=== PATIENT | male | born 1990 | race African-American/Black ===

== ENCOUNTER 2020-08-03 09:08 | Emergency (ER) | payer OTHER ==
[2020-08-03] MEDS ORDERED: KETOROLAC 30 MG/ML INJ ONE (11:05)
--- NOTE | 2020-08-03 11:16 | EDPHYS ---
Physician Documentation [facility] Name: Henrry Mohan Age: 29 yrs Sex: Male : 1990 Arrival Date: 08/03/2020 Time: 09:15 Bed 20 Private MD: ED Physician Jeremy Domingo HPI: 08/03 10:38 This 29 yrs old Black Male presents to ER via Ambulatory with complaints of Knee Pain. pm1 10:38 The patient presents with pain. The complaints affect the left knee. Context: The pm1 problem was sustained at work, resulted from a repetitive motion, jumping, the patient can fully bear weight, the patient is able to ambulate, Problem is a result from a previous injury: No. Onset: The symptoms/episode began/occurred 3 month(s) ago. Modifying factors: the symptoms are aggravated by weight bearing, bending knee. Associated signs and symptoms: Pertinent negatives calf tenderness, numbness, swelling, tingling. Treatment prior to arrival includes: over the counter medications, NSAIDS. Severity of symptoms: in the emergency department the symptoms are actually worse. 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 Historical: - Allergies: 09:21 No Known Allergies; ss - Home Meds: 09:21 None [Active]; ss - PMHx: 09:21 None; ss - PSHx: 09:21 None; ss - Immunization history:: Adult Immunizations unknown. - Social history:: Smoking status: Patient reports the use of cigarette tobacco products, smokes one-half pack cigarettes per day. ROS: 10:38 Constitutional: Negative for fever, chills, and weight loss. pm1 10:38 Cardiovascular: Negative for chest pain, palpitations, and edema, Respiratory: Negative for shortness of breath, cough, wheezing, and pleuritic chest pain. 10:38 Skin: Negative for injury, rash, and discoloration, Neuro: Negative for headache, weakness, numbness, tingling, and seizure. 10:38 MS/extremity: Positive for pain, of the left knee. Exam: 10:38 Constitutional: This is a well developed, well nourished patient who is awake, alert, pm1 and in no acute distress. Head/Face: Normocephalic, atraumatic. 10:38 Skin: Warm, dry with normal turgor. Normal color with no rashes, no lesions, and no evidence of cellulitis. 10:38 Cardiovascular: Exam negative for acute changes, Rate: normal, Rhythm: regular, Pulses: no pulse deficits are appreciated. 10:38 Respiratory: Exam negative for acute changes, respiratory distress, shortness of breath. 10:38 Musculoskeletal/extremity: Extremities: grossly normal except: noted in the left knee: negative drawer, valgus, varus test. Positive apley test. Vital Signs: 09:19 BP 135 / 82; Pulse 75; Resp 16; Temp 98.5(TE); Pulse Ox 100% on R/A; Height 5 ft. 8 in. ss (172.72 cm); Pain 8/10; MDM: 10:30 Patient medically screened. pm1 10:37 Data reviewed: vital signs. Data interpreted: Pulse oximetry: on room air is 100 %. pm1 Interpretation: normal. 11:13 Counseling: I had a detailed discussion with the patient and/or guardian regarding: the pm1 historical points, exam findings, and any diagnostic results supporting the discharge/admit diagnosis, radiology results, the need for outpatient follow up, for definitive care, a orthopedic surgeon, to return to the emergency department if symptoms worsen or persist or if there are any questions or concerns that arise at home. 12 10:37 Order name: Knee Left 3 View XRAY; Complete Time: 13:23 pm1 08/03 10:37 Order name: Knee Immobilizer; Complete Time: 11:24 pm1 08/03 10:37 Order name: Crutches; Complete Time: 11:24 pm1 Administered Medications: 10:56 Drug: TORadol 60 mg Route: IM; Site: left deltoid; ph 11:39 Follow up: Response: No adverse reaction ph Disposition: 15:42 Co-signature as Attending Physician, Jeremy Domingo MD. rn Disposition: 08/03/20 11:15 Discharged to Home. Impression: Unspecified internal derangement of left knee, Pain in left knee. - Condition is Stable. - Discharge Instructions: Crutch Use, Knee Immobilizer, Knee Pain. - Prescriptions for Tramadol 50 mg Oral Tablet - take 1 tablet by ORAL route every 8 hours as needed; 12 tablet. - Work release form, Medication Reconciliation Form, Thank You Letter, Antibiotic Education, Prescription Opioid Use form. - Follow up: Emergency Department; When: As needed; Reason: Worsening of condition. Follow up: Private Physician; When: 2 - 3 days; Reason: Recheck today's complaints, Continuance of care, Re-evaluation by your physician. - Problem is new. - Symptoms have improved. Signatures: Dispatcher [employer] EDMS Jeremy Domingo MD MD rn Smirch, Shelby, RN RN Johana Tidwell RN RN ph David Wan, ADRIANNA SERVICE TRAINER pm1 Corrections: (The following items were deleted from the chart) 11:40 11:15 08/03/2020 11:15 Discharged to Home. Impression: Unspecified internal derangement ph of left kneePain in left knee. Condition is Stable. Forms are Medication Reconciliation Form, Thank You Letter, Antibiotic Education, Prescription Opioid Use. Follow up: Emergency Department; When: As needed; Reason: Worsening of condition. Follow up: Private Physician; When: 2 - 3 days; Reason: Recheck today's complaints, Continuance of care, Re-evaluation by your physician. Problem is new. Symptoms have improved. pm1
--- NOTE | 2020-08-03 11:16 | ER ---
Nurse's Notes [facility] Name: Henrry Mohan Age: 29 yrs Sex: Male : 1990 Arrival Date: 08/03/2020 Time: 09:15 Bed 20 Private MD: Diagnosis: Pain in left knee;Unspecified internal derangement of left knee Presentation: 08/03 09:19 Chief complaint: Patient states: L knee pain that began 3 months ago. 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 Coronavirus screen: Client denies travel out of the [place] in the last 14 days. Ebola Screen: Patient denies exposure to infectious person. Patient denies travel to an Ebola-affected area in the 21 days before illness onset. Initial Sepsis Screen: Does the patient meet any 2 criteria? No. Patient's initial sepsis screen is negative. Does the patient have a suspected source of infection? No. Patient's initial sepsis screen is negative. Risk Assessment: Do you want to hurt yourself or someone else? Patient reports no desire to harm self or others. Onset of symptoms was April 2020. 09:19 Method Of Arrival: Ambulatory ss 09:19 Acuity: JOSSELINE 4 ss Historical: - Allergies: 09:21 No Known Allergies; ss - Home Meds: 09:21 None [Active]; ss - PMHx: 09:21 None; ss - PSHx: 09:21 None; ss - Immunization history:: Adult Immunizations unknown. - Social history:: Smoking status: Patient reports the use of cigarette tobacco products, smokes one-half pack cigarettes per day. Screenin:57 Abuse screen: Denies threats or abuse. Denies injuries from another. Nutritional ph screening: No deficits noted. Tuberculosis screening: No symptoms or risk factors identified. Fall Risk None identified. Assessment: 10:56 General: Appears in no apparent distress. comfortable, well groomed, Behavior is calm, ph cooperative, appropriate for age. Pain: Complains of pain in left knee. Neuro: Level of Consciousness is awake, alert, obeys commands, Oriented to person, place, time, situation. Derm: Skin is intact, is healthy with good turgor, Skin is pink, warm \T\ dry. Musculoskeletal: Circulation, motion, and sensation intact. Range of motion: intact in all extremities. Vital Signs: 09:19 BP 135 / 82; Pulse 75; Resp 16; Temp 98.5(TE); Pulse Ox 100% on R/A; Height 5 ft. 8 in. ss (172.72 cm); Pain 8/10; ED Course: 09:15 Patient arrived in ED. ds1 09:21 Triage completed. ss 09:21 Arm band placed on left wrist. ss 10:05 Johana Tidwell RN is Primary Nurse. ph 10:22 David Wan NP is PHCP. pm1 10:22 Jeremy Domingo MD is Attending Physician. pm1 10:57 Patient has correct armband on for positive identification. Bed in low position. Call ph light in reach. 10:57 No provider procedures requiring assistance completed. Patient did not have IV access ph during this emergency room visit. 11:04 Knee Left 3 View XRAY In Process Unspecified. EDMS 11:25 Crutch training done. Knee immobilizer applied on left knee. ds4 Administered Medications: 10:56 Drug: TORadol 60 mg Route: IM; Site: left deltoid; ph 11:39 Follow up: Response: No adverse reaction ph Outcome: 11:15 Discharge ordered by MD. pm1 11:39 Discharged to home ambulatory, with crutches. ph 11:39 Condition: good 11:39 Discharge instructions given to patient, Instructed on discharge instructions, follow up and referral plans. medication usage, Demonstrated understanding of instructions, follow-up care, medications, Prescriptions given X 1. 11:40 Patient left the ED. ph Signatures: Dispatcher [employer] EDKS Tiana Boggs ds1 Lianna Meyer RN RN Tono Garcia ds4 Johana Tidwell RN RN David Wan NP GRAVITY PROSPECTING OPERATOR HELPER pm1
--- NOTE | 2020-08-03 11:38 | RAD REPORT ---
EXAM DESCRIPTION: RAD - Knee Left 3 View - 08/03/2020 11:03 am CLINICAL HISTORY: Left knee pain FINDINGS: No fracture or dislocation is seen. Small joint effusion suspected
[2020-08-08 01:53] VITALS: BP 135/82; TEMP 98.5; O2SAT 100
== END 2020-08-03 11:40 | disposition home or self-care (01) ==
LOC: ER 09:08
DX: M23.92 Unspecified internal derangement of left knee (principal); F17.210 Nicotine dependence, cigarettes, uncomplicated
CPT/HCPCS: 96372; 99284

== ENCOUNTER 2022-09-26 23:10 | Emergency (ER) | payer OTHER ==
[2022-09-26] MEDS ORDERED: ZIPRASIDONE MESYLA 20 MG/VIAL IM ONE (23:35)
[2022-09-26] MEDS ORDERED: WATER FOR INJ,STERILE 10 ML ONE (23:36)
[2022-09-27 00:09] LABS: Protime INR 0.84
[2022-09-27 00:10] LABS: Absolute Lymphocytes (CBC) 3.2 K/uL (0.7-4.9); Hematocrit 41.4 % (39.6-49.0); Lymphocytes % 37.4 % (15.3-44.8); MPV 9.9 fL (7.6-11.3); RBC Red Blood Cell Count 4.81 M/uL (4.33-5.43)
[2022-09-27 00:22] LABS: SARS-CoV-2 Antigen Rapid Res Negative (Negative)
[2022-09-27 00:31] LABS: BUN Blood Urea Nitrogen 13 mg/dL (7-18); Bicarbonate 25 mmol/L (21-32); Glomerular Filtration Rate 103 ml/min (=/>90); Glucose Level 77 mg/dL (74-106); Sodium Level 142 mmol/L (136-145)
[2022-09-27 00:38] LABS: ALT/SGPT 49 U/L (16-61); Albumin 3.6 g/dL (3.4-5.0); Alkaline Phosphatase 112 U/L (45-117); Bilirubin Total 0.3 mg/dL (0.2-1.0)
[2022-09-27 00:39] LABS: AST/SGOT 38 U/L (15-37); Protein, Total 7.3 g/dL (6.4-8.2)
[2022-09-27 00:41] LABS: Bilirubin Direct < 0.1 mg/dL (0-0.2)
[2022-09-27] MEDS ORDERED: NA CHLORIDE 0.9% 1,000 ML ONE (00:52)
[2022-09-27 02:08] LABS: Urine Blood Negative (Negative); Urine Glucose Negative (Negative); Urine Protein Negative (Negative); Urine pH 6.5 (5.0-7.0)
--- NOTE | 2022-09-27 02:15 | ER ---
Nurse's Notes [facility] Name: Henrry Mohan Age: 31 yrs Sex: Male : 1990 Arrival Date: 09/26/2022 Time: 23:15 Bed 16 Private MD: Diagnosis: Auditory hallucinations;Schizophrenia, unspecified;Polysubstance abuse Presentation: 09/26 23:19 Chief complaint: Patient states: Hallucinations, Hearing voices since about a month and ke1 getting worse today. Coronavirus screen: Vaccine status: Patient reports being unvaccinated. Ebola Screen: No symptoms or risks identified at this time. Initial Sepsis Screen: Does the patient meet any 2 criteria? RR > 20 per min. Does the patient have a suspected source of infection? No. Patient's initial sepsis screen is negative. Risk Assessment: Do you want to hurt yourself or someone else? Patient reports no desire to harm self or others. Onset of symptoms was August 26, 2022 at 07:00. 23:19 Method Of Arrival: EMS ke1 23:19 Acuity: JOSSELINE 3 ke1 Triage Assessment: 23:20 General: Appears uncomfortable, Behavior is agitated, restless. Pain: Denies pain. ke1 Neuro: Etienne Agitation-Sedation Scale (RASS): +1 Restless Level of Consciousness is awake, alert, Oriented to person, place, time, situation. Respiratory: Respiratory effort is even, labored. Historical: - Allergies: 23:44 No Known Allergies; ke1 - PMHx: 23:44 Schizophrenia; Bipolar disorder; ke1 - Immunization history:: Client reports having NOT received the Covid vaccine. - Social history:: Smoking status: Patient reports the use of cigarette tobacco products, smokes one pack cigarettes per day. Screenin:45 [facility] ED Fall Risk Assessment (Adult) History of falling in the last 3 months, ke1 including since admission No falls in past 3 months (0 pts) Confusion or Disorientation No (0 pts) Intoxicated or Sedated No (0 pts) Impaired Gait No (0 pts) Mobility Assist Device Used No (0 pt) Altered Elimination No (0 pt) Score/Fall Risk Level 0 - 2 = Low Risk. Abuse screen: Denies threats or abuse. Nutritional screening: No deficits noted. Tuberculosis screening: No symptoms or risk factors identified. Assessment: 09/27 00:02 Neuro: Etienne Agitation-Sedation Scale (RASS): -1 Drowsy. ke1 00:02 Reassessment: Patient in bed sleeping. ke1 00:12 Reassessment: Patient unable to provide urine at this time. ke1 01:30 Reassessment: Re attempt to get urine, patient is refusing to wake up, not able to get ke1 urine at this time. 02:00 Reassessment: urine collected Patient denies pain at this time. ke1 02:13 Neuro: Etienne Agitation-Sedation Scale (RASS): -1 Drowsy. ke1 06:52 Neuro: Etienne Agitation-Sedation Scale (RASS): 0 - Alert and Calm. ke1 Psych: 09/26 23:40 [place] Suicide Severity Screening: In the past month, have you wished you were ke1 or wished you could go to sleep and not wake up? Patient responds "No." "In the past month, have you actually had any thoughts of killing yourself?" Patient responds "no." "In your lifetime, have you ever done anything, started to do anything, or prepared to do anything to end your life?" Patient responds "no.". Subjective: Hallucinations are auditory, visual. Objective: Patient is cooperative, restless, Speech is normal, Affect is appropriate. Interventions: Patient placed in hospital gown. Safety Checks: Pt has been placed in a hallway bed/chair. Door is open. No visitors are present at this time. drank some tequila 30 mn prior. Commitment: Patient will be a voluntary commitment. Vital Signs: 23:19 BP 161 / 113; Pulse 103; Resp 21; Temp 97.5; Pulse Ox 100% on R/A; Weight 95.25 kg; ke1 Height 5 ft. 8 in. (172.72 cm); Pain 0/10; 09/27 00:09 BP 131 / 89; Pulse 93; Resp 20; Pulse Ox 98% ; ke1 02:13 BP 107 / 64; Pulse 80; Resp 17; Pulse Ox 98% on R/A; Pain 0/10; ke1 03:14 BP 123 / 84; Pulse 76; Resp 16; Temp 97.6; Pulse Ox 97% on R/A; Pain 0/10; ke1 06:51 BP 129 / 96; Pulse 74; Resp 17; Temp 97.8; Pulse Ox 99% on R/A; Pain 0/10; ke1 09/26 23:19 Body Mass Index 31.93 (95.25 kg, 172.72 cm) ke1 ED Course: 09/26 23:15 Patient arrived in ED. wm 23:15 [facility]C [facility] kb 23:15 Jose Florentino DO is Attending Physician. kb 23:19 Donald Souza RN is Primary Nurse. ke1 23:40 Inserted saline lock: 20 gauge in left antecubital area, using aseptic technique. Blood ed2 collected. 23:44 Triage completed. ke1 23:48 Arm band placed on left wrist. ke1 23:50 Bed in low position. Call light in reach. Side rails up X 1. Side rails up X2. ke1 09/27 02:07 Urine Drug Screen Sent. ke1 03:55 Faxed all Psych Facilities listed on transfer sheet. 04:59 [facility] called to do Nurse to Nurse. wm 05:05 [facility] called to do Nurse to Nurse. wm 05:19 [facility] accepted Pt for transfer. wm 06:51 No provider procedures requiring assistance completed. IV discontinued. ke1 Administered Medications: 09/26 23:57 Drug: Geodon (ziprasidone) 10 mg Route: IM; Site: left deltoid; ke1 09/27 00:30 Follow up: Response: Marked relief of symptoms ke1 00:53 Drug: NS 0.9% 1000 ml Route: IV; Rate: 1000 ml; Site: left antecubital; ke1 Medication: 06:59 VIS not applicable for this client. ke1 Outcome: 02:14 ER care complete, transfer ordered by . ms3 06:59 Transferred by ground EMS ke1 06:59 Condition: good 06:59 Instructed on the need for transfer. 06:59 Patient left the ED. ke1 Signatures: Neela Kern FNP-C SCOUT EXECUTIVE-Ckb Jose Florentino DO DO ms3 Estefanía Penn Donald Souza RN RN ke1 Susie Horne ed2 Corrections: (The following items were deleted from the chart) 09/26 23:46 23:46 General: Appears ke1 ke1 09/27 02:17 02:13 Neuro: Etienne Agitation-Sedation Scale (RASS): 0 - Alert and Calm ke1 ke1
--- NOTE | 2022-09-27 02:15 | EDPHYS ---
Physician Documentation [facility] Name: Henrry Mohan Age: 31 yrs Sex: Male : 1990 Arrival Date: 09/26/2022 Time: 23:15 Bed 16 Private MD: ED Physician Jose Florentino HPI: 09/26 23:17 This 31 yrs old Black Male presents to ER via Unassigned with complaints of Psych kb Problem. 23:17 The patient presents to the emergency department with Auditory hallucinations. Onset: kb The symptoms/episode began/occurred 1 month(s) ago, and became worse. Past psychiatric history: Prior diagnosis: bipolar disorder, schizophrenia. Associated signs and symptoms: Pertinent positives; hallucinations. Severity of symptoms: At their worst the symptoms were moderate in the emergency department the symptoms are unchanged. The patient has experienced similar episodes in the past. The patient has not recently seen a physician. Patient reports auditory hallucinations for 1 month they have been getting progressively worse. States he has a history of schizophrenia and bipolar but is not on any medications. Reports he stopped taking his medications about 2 years ago. Denies homicidal or suicidal ideations at this time.. Historical: - Allergies: 23:44 No Known Allergies; ke1 - PMHx: 23:44 Schizophrenia; Bipolar disorder; ke1 - Immunization history:: Client reports having NOT received the Covid vaccine. - Social history:: Smoking status: Patient reports the use of cigarette tobacco products, smokes one pack cigarettes per day. ROS: 23:19 Constitutional: Negative for fever, chills, and weight loss. kb 23:19 Psych: Positive for auditory hallucinations. 23:19 All other systems are negative. Exam: 23:19 Constitutional: This is a well developed, well nourished patient who is awake, alert, kb and in no acute distress. Head/Face: Normocephalic, atraumatic. ENT: Moist Mucous membranes Cardiovascular: Regular rate and rhythm with a normal S1 and S2. No gallops, murmurs, or rubs. No pulse deficits. Respiratory: Respirations even and unlabored. No increased work of breathing. Talking in full sentences Skin: Warm, dry with normal turgor. Normal color. MS/ Extremity: Pulses equal, no cyanosis. Neurovascular intact. Full, normal range of motion. Neuro: Awake and alert, GCS 15, oriented to person, place, time, and situation. Moves all extremities. Normal gait. 23:19 Psych: Behavior/mood is cooperative, anxious, Affect is calm, Oriented to person, place, time, Patient has no thoughts/intents to harm self or others. Judgement / Insight is normal. Memory is normal. Delusions/hallucinations are present and described as Auditory hallucinations. 23:33 ECG was reviewed by the Attending Physician. Vital Signs: 23:19 BP 161 / 113; Pulse 103; Resp 21; Temp 97.5; Pulse Ox 100% on R/A; Weight 95.25 kg; ke1 Height 5 ft. 8 in. (172.72 cm); Pain 0/10; 09/27 00:09 BP 131 / 89; Pulse 93; Resp 20; Pulse Ox 98% ; ke1 02:13 BP 107 / 64; Pulse 80; Resp 17; Pulse Ox 98% on R/A; Pain 0/10; ke1 03:14 BP 123 / 84; Pulse 76; Resp 16; Temp 97.6; Pulse Ox 97% on R/A; Pain 0/10; ke1 06:51 BP 129 / 96; Pulse 74; Resp 17; Temp 97.8; Pulse Ox 99% on R/A; Pain 0/10; ke1 09/26 23:19 Body Mass Index 31.93 (95.25 kg, 172.72 cm) ke1 MDM: 09/26 23:16 Patient medically screened. 23:18 Differential diagnosis: acute psychotic break, depression, psychosis secondary to kb non-compliance. Data reviewed: vital signs, nurses notes. Historians other than the Patient:. Care significantly affected by the following Social Determinants of Health: Misuse of alcohol and/or drugs. 23:44 ED course: Patient would like to voluntarily be transferred to the inpatient psychiatric facility for treatment.. 09/27 00:48 Transition of care: After a detail discussion of the patient's case, care is transferred to Jose Florentino DO. 05:22 ED course: Patient accepted to [facility]. ms3 09/26 23:16 Order name: Acetaminophen; Complete Time: 00:44 kb 09/26 23:16 Order name: Basic Metabolic Panel; Complete Time: 00:44 kb 09/26 23:16 Order name: CBC with Diff; Complete Time: 00:17 kb 09/26 23:16 Order name: ETOH Level; Complete Time: 00:44 kb 09/26 23:16 Order name: Hepatic Function; Complete Time: 00:44 kb 09/26 23:16 Order name: PT-INR; Complete Time: 00:10 kb 09/26 23:16 Order name: Ptt, Activated; Complete Time: 00:10 kb 09/26 23:16 Order name: Salicylate; Complete Time: 00:44 kb 09/26 23:16 Order name: Urine Drug Screen; Complete Time: 02:32 kb 09/26 23:16 Order name: EKG; Complete Time: 23:17 kb 09/26 23:22 Order name: SARS RAPID; Complete Time: 00:44 kb 09/27 02:08 Order name: Urine Dipstick-Ancillary; Complete Time: 02:32 EDMS 09/26 23:16 Order name: EKG - Nurse/Tech; Complete Time: 23:45 kb 09/26 23:16 Order name: IV Saline Lock; Complete Time: 23:41 kb 09/26 23:16 Order name: Labs collected and sent; Complete Time: 23:41 kb 09/26 23:16 Order name: Suicide Screening ([place]); Complete Time: 23:46 kb 09/26 23:16 Order name: Urine Dipstick-Ancillary (obtain specimen); Complete Time: 02:14 kb EC/28 23:33 Rate is 88 beats/min. Rhythm is regular. QRS [place] is Normal. [place] interval is normal at kb 134 msec. QRS interval is normal at 82 msec. QT interval is normal at 408 msec. Administered Medications: 23:57 Drug: Geodon (ziprasidone) 10 mg Route: IM; Site: left deltoid; ke1 09/27 00:30 Follow up: Response: Marked relief of symptoms ke1 00:53 Drug: NS 0.9% 1000 ml Route: IV; Rate: 1000 ml; Site: left antecubital; ke1 Disposition: 09/26 23:26 I reviewed the patient's care provided by Advanced Practice Provider \T\ agree w/ the ms3 diagnosis \T\ care plan. I personally saw the pt \T\ performed a substantive portion of the visit, incldng all aspects of the (History/Exam/Medical Decision Making). PA/TOBACCO WRAPPING MACHINE TENDER's history reviewed, patient interviewed, and examined. HPI: 31-year-old male with past medical history of bipolar and schizophrenia presents via [facility] for hearing voices. Patient cannot state what the voices are telling him. Patient states he has not been on psychiatric medicines for 2 years. My personal exam of patient reveals: On exam patient is anxious, cooperative, alert. Heart rate and rhythm are regular without murmurs rubs or gallops. Lungs clear to auscultation bilaterally. Abdomen nontender to palpation with bowel sounds present. Skin dry and without rashes. I agree with assessment and care plan and confirm the diagnosis (es) above. Disposition Summary: 09/27/22 02:14 Transfer Ordered Transfer Location: Psych Facility ms3 Reason: Higher level of care ms3 Condition: Stable ms3 Problem: new ms3 Symptoms: are unchanged ms3 Accepting Physician: (09/27/22 06:59) ke1 Diagnosis - Auditory hallucinations ms3 - Schizophrenia, unspecified ms3 - Polysubstance abuse ms3 Forms: - Medication Reconciliation Form ms3 - SBAR form ms3 Signatures: Dispatcher [employer] EDNeela Segal, AGRONOMY ADVISOR-C AGRONOMY ADVISOR-Ckb Jose Florentino, DO ms3 Donald Souza RN RN ke1 Corrections: (The following items were deleted from the chart) 09/27 02:33 02:14 Dr cam ms3 06:59 02:33 Dr cam ke1
[2022-09-27 02:18] LABS: Barbiturates NEGATIVE (NEGATIVE); Benzodiazepines NEGATIVE (NEGATIVE); Cocaine POSITIVE (NEGATIVE); METHAMPHETAM NEGATIVE (NEGATIVE); Methadone NEGATIVE (NEGATIVE); Opiates NEGATIVE (NEGATIVE); Phencyclidine POSITIVE (NEGATIVE); THC Cannibis POSITIVE (NEGATIVE)
[2022-09-27 07:34] VITALS: BP 129/96; TEMP 97.8; O2SAT 99
--- NOTE | 2022-09-29 17:04 | EKG ---
Test Date: 2022-09-26 Test Time: 23:29:33 [employer] Brusher: JUSTIN MEASUREMENT RESULTS: Intervals: Rate: 88 NV: 134 QRSD: 82 QT: 338 QTc: 408 [place]: P: 75 NV: 134 QRS: 61 T: 22 INTERPRETIVE STATEMENTS: Normal sinus rhythm Possible Anterior infarct, age undetermined Abnormal ECG No previous ECG available for comparison Electronically Signed On 09-29-22 16:58:18 CNC MACHINIST 2ND SHIFT by Dane Balderas
== END 2022-09-27 06:59 ==
LOC: ER 23:10
DX: R44.0 Auditory hallucinations (principal); F19.10 Other psychoactive substance abuse, uncomplicated; F17.210 Nicotine dependence, cigarettes, uncomplicated; Z20.822 Contact with and (suspected) exposure to COVID-19
CPT/HCPCS: 93005; 85025; 80048; 36415; 85610; 80076; 85730; 81003; 80307; 96372; 99285; 87811; J3486; J7030; G0480 ×3

== ENCOUNTER 2022-10-09 20:21 | Emergency (ER) | payer OTHER ==
[2022-10-09 20:57] LABS: Absolute Lymphocytes (CBC) 2.5 K/uL (0.7-4.9); Hematocrit 40.2 % (39.6-49.0); Lymphocytes % 28.7 % (15.3-44.8); MCV 85.2 fL (80-100); MPV 9.9 fL (7.6-11.3); RBC Red Blood Cell Count 4.72 M/uL (4.33-5.43)
[2022-10-09 20:59] LABS: Barbiturates NEGATIVE (NEGATIVE); Benzodiazepines POSITIVE (NEGATIVE); Cocaine POSITIVE (NEGATIVE); METHAMPHETAM NEGATIVE (NEGATIVE); Methadone NEGATIVE (NEGATIVE); Opiates NEGATIVE (NEGATIVE); Phencyclidine POSITIVE (NEGATIVE); THC Cannibis POSITIVE (NEGATIVE)
[2022-10-09] MEDS ORDERED: NA CHLORIDE 0.9% 1,000 ML ONE (20:59)
[2022-10-09 21:01] LABS: Protime INR 1.04
[2022-10-09 21:28] LABS: ALT/SGPT 41 U/L (16-61); AST/SGOT 32 U/L (15-37); Albumin 3.5 g/dL (3.4-5.0); Alkaline Phosphatase 101 U/L (45-117); BUN Blood Urea Nitrogen 13 mg/dL (7-18); Bicarbonate 28 mmol/L (21-32); Bilirubin Direct 0.1 mg/dL (0-0.2); Bilirubin Total 0.4 mg/dL (0.2-1.0); Glomerular Filtration Rate 84 ml/min (=/>90); Glucose Level 109 mg/dL (74-106); Potassium 3.2 mmol/L (3.5-5.1); Protein, Total 6.8 g/dL (6.4-8.2); Sodium Level 140 mmol/L (136-145)
--- NOTE | 2022-10-10 02:07 | ER ---
Nurse's Notes [facility] Name: Henrry Mohan Age: 31 yrs Sex: Male : 1990 Arrival Date: 10/09/2022 Time: 20:24 Bed 20 Private MD: Diagnosis: Adverse effect of unspecified drugs, medicaments and biological substances Presentation: 10/09 20:36 Chief complaint: EMS states: patient smoke embalming fluid. combative on scene. 5 mg of ha1 Versed were given. Coronavirus screen: Vaccine status:. Ebola Screen: No symptoms or risks identified at this time. Initial Sepsis Screen: Does the patient meet any 2 criteria? No. Patient's initial sepsis screen is negative. Does the patient have a suspected source of infection? No. Patient's initial sepsis screen is negative. Risk Assessment: Do you want to hurt yourself or someone else? Unable to obtain. 20:36 Method Of Arrival: EMS: [facility] ha1 20:36 Acuity: JOSSELINE 3 ha1 21:12 Onset of symptoms was October 09, 2022. ha1 Historical: - Allergies: 20:42 No Known Allergies; ha1 - PMHx: 20:42 Bipolar disorder; Schizophrenia; ha1 - Immunization history:: Adult Immunizations unknown. - Family history:: not pertinent. - Social history:: Smoking status: unknown. - Hospitalizations: : No recent hospitalization is reported. Screenin:40 [facility] ED Fall Risk Assessment (Adult) History of falling in the last 3 months, ha1 including since admission No falls in past 3 months (0 pts) Confusion or Disorientation Yes (5 pts) Intoxicated or Sedated Yes (3 pts) Impaired Gait Yes (1 pt) Mobility Assist Device Used No (0 pt) Altered Elimination Yes (1 pt) Score/Fall Risk Level 3 or more points = High Risk Oriented to surroundings, Maintained a safe environment, Educated pt \T\ family on fall prevention, incl call for assistance when getting out of bed, Assessed \T\ reinforced patient's understanding of fall precautions, Hourly rounding (assess needs \T\ fall precautionary measures) done, Implemented a Fall Risk Plan of Care. Tuberculosis screening: No symptoms or risk factors identified. 20:45 Abuse screen: Denies threats or abuse. Denies injuries from another. ha1 21:12 Nutritional screening: No deficits noted. ha1 Assessment: 20:24 General: Appears comfortable, Behavior is drowsy. Pain: Unable to use pain scale. FLACC ha1 scale score is 0 out of 10. Neuro: Level of Consciousness is stuporous, Oriented to person. Cardiovascular: Heart tones S1 S2 present Capillary refill < 3 seconds Patient's skin is warm and dry. Pulses are all present. Rhythm is sinus tachycardia. Respiratory: Airway is patent Respiratory effort is even, unlabored, Respiratory pattern is regular, symmetrical. GI: Abdomen is flat, non-distended, Bowel sounds present X 4 quads. : No signs and/or symptoms were reported regarding the genitourinary system. EENT: No deficits noted. No signs and/or symptoms were reported regarding the EENT system. Derm: Skin is healthy with good turgor, Skin is moist, Skin is normal. Musculoskeletal: Circulation, motion, and sensation intact. 21:20 Reassessment: Patient and/or family updated on plan of care and expected duration. Pain ha1 level reassessed. Neuro: Level of Consciousness is lethargic. Respiratory: Airway is patent Respiratory effort is even, unlabored, Respiratory pattern is regular, symmetrical. 22:20 Reassessment: eyes closed. Respiratory: Airway is patent Respiratory effort is even, ha1 unlabored, Respiratory pattern is regular, symmetrical. 23:20 Reassessment: eyes closed. Respiratory: Airway is patent Respiratory effort is even, ha1 unlabored, Respiratory pattern is regular, symmetrical. 10/10 00:20 Reassessment: eyes closed. Neuro: Oriented to person. Respiratory: Airway is patent ha1 Respiratory effort is even, unlabored, Respiratory pattern is regular, symmetrical. 01:20 Pain: Denies pain. Neuro: Level of Consciousness is awake, alert, Oriented to person, ha1 place. Respiratory: Airway is patent Respiratory effort is even, unlabored, Respiratory pattern is regular, symmetrical. 02:20 Reassessment: Patient and/or family updated on plan of care and expected duration. Pain ha1 level reassessed. Patient is alert, oriented x 3, equal unlabored respirations, skin warm/dry/pink. Patient denies pain at this time. 03:00 Reassessment: Patient and/or family updated on plan of care and expected duration. Pain ha1 level reassessed. Patient is alert, oriented x 3, equal unlabored respirations, skin warm/dry/pink. reports not having transportation. notified charge nurse Patient denies pain at this time. Vital Signs: 10/09 20:36 BP 111 / 76; Pulse 110; Resp 20 S; Temp 97; Pulse Ox 96% on R/A; Weight 90.72 kg; ha1 Height 5 ft. 8 in. (172.72 cm); 21:10 BP 111 / 67; Pulse 97; Resp 18 S; Pulse Ox 98% on R/A; ha1 22:00 BP 118 / 65; Pulse 98; Resp 18 S; Pulse Ox 98% on R/A; ha1 22:20 BP 117 / 70; Pulse 94; Resp 19 S; Pulse Ox 98% on R/A; ha1 23:00 BP 119 / 70; Pulse 95; Resp 17 S; Pulse Ox 98% on R/A; ha1 10/10 00:00 BP 115 / 77; Pulse 92; Resp 18 S; Pulse Ox 98% on R/A; ha1 01:00 BP 115 / 73; Pulse 89; Resp 18 S; Pulse Ox 99% on R/A; ha1 01:20 BP 113 / 76; Pulse 85; Resp 18 S; Pulse Ox 99% on R/A; ha1 02:20 BP 110 / 78; Pulse 88; Resp 16 S; Pulse Ox 99% on R/A; ha1 03:00 BP 114 / 75; Pulse 88; Resp 16 S; Pulse Ox 99% on R/A; ha1 10/09 20:36 Body Mass Index 30.41 (90.72 kg, 172.72 cm) ha1 ED Course: 10/09 20:24 Patient arrived in ED. wm 20:24 Jeremy Domingo MD is Attending Physician. rn 20:24 Patient has correct armband on for positive identification. Placed in gown. Bed in low ha1 position. Call light in reach. Side rails up X2. 20:25 Maintain EMS IV. Dressing intact. Good blood return noted. Site clean \T\ dry. Gauge \T\ love 1 site: 20. Flushed right forearm. 20:35 Talya Kelly RN is Primary Nurse. ha1 20:35 Straight cath inserted, using sterile technique, 16 Fr. Specimen obtained. Returned ha1 olivier urine. Patient tolerated well. 20:42 Triage completed. ha1 21:12 Acetaminophen Sent. rv1 21:12 Basic Metabolic Panel Sent. rv1 21:12 Arm band placed on left wrist. EKG completed in triage. Results shown to MD. ha1 10/10 03:30 No provider procedures requiring assistance completed. ha1 03:30 IV discontinued, intact, bleeding controlled, No redness/swelling at site. Pressure ha1 dressing applied. Administered Medications: 10/09 20:58 Drug: NS 0.9% 1000 ml Route: IV; Rate: 1 bolus; Site: right antecubital; ha1 10/10 00:30 Follow up: Response: No adverse reaction; IV Status: Completed infusion; IV Intake: ha1 1000ml Medication: 03:30 VIS not applicable for this client. ha1 Intake: 00:30 IV: 1000ml; Total: 1000ml. ha1 Outcome: 02:07 Discharge ordered by . rn 03:30 Patient left the ED. ha1 03:30 Discharged to home ambulatory. ha1 03:30 Condition: stable 03:30 Discharge instructions given to patient, Instructed on discharge instructions, follow up and referral plans. Demonstrated understanding of instructions, follow-up care. Signatures: Jeremy Domingo MD MD rn Marsh, Wendy Talay Kelly RN RN 1 Carolyn Montes De Oca rv1
--- NOTE | 2022-10-10 02:07 | EDPHYS ---
Physician Documentation [facility] Name: Henrry Mohan Age: 31 yrs Sex: Male : 1990 Arrival Date: 10/09/2022 Time: 20:24 Bed 20 Private MD: ED Physician Jeremy Domingo HPI: 10/09 20:25 This 31 yrs old Black Male presents to ER via Unassigned with complaints of AMS, rn agitation.. 20:25 The patient presents with agitation, disorientation. Onset: The symptoms/episode rn began/occurred at an unknown time. Possible causes: drug use. Associated signs and symptoms: Pertinent positives: combativeness. Unable to obtain HPI due to altered mental status. It is unknown whether or not the patient has had similar symptoms in the past. It is unknown whether or not the patient has recently seen a physician. Per EMS, were called out for AMS, hearing voices, told at scene that he smoked embalming fluid, unknown when he smoked it, was agitated/combative, and was given 5mg versed IM, now sleeping. . Historical: - Allergies: 20:42 No Known Allergies; ha1 - PMHx: 20:42 Bipolar disorder; Schizophrenia; ha1 - Immunization history:: Adult Immunizations unknown. - Family history:: not pertinent. - Social history:: Smoking status: unknown. - Hospitalizations: : No recent hospitalization is reported. ROS: 20:25 Unable to obtain ROS due to altered mental status. rn Exam: 20:25 Constitutional: This is a well developed, well nourished patient who is somnolent, no rn apnea Head/Face: Normocephalic, atraumatic. ENT: dry MM Cardiovascular: Tachycardic, regular. No pulse deficits. Respiratory: No increased work of breathing, no retractions or nasal flaring. Abdomen/GI: Soft, non-tender Skin: Warm, dry MS/ Extremity: Pulses equal, no cyanosis. Neuro: Somnolent, groans to pain 20:34 ECG was reviewed by the Attending Physician. rn Vital Signs: 20:36 BP 111 / 76; Pulse 110; Resp 20 S; Temp 97; Pulse Ox 96% on R/A; Weight 90.72 kg; ha1 Height 5 ft. 8 in. (172.72 cm); 21:10 BP 111 / 67; Pulse 97; Resp 18 S; Pulse Ox 98% on R/A; ha1 22:00 BP 118 / 65; Pulse 98; Resp 18 S; Pulse Ox 98% on R/A; ha1 22:20 BP 117 / 70; Pulse 94; Resp 19 S; Pulse Ox 98% on R/A; ha1 23:00 BP 119 / 70; Pulse 95; Resp 17 S; Pulse Ox 98% on R/A; 1 11 00:00 BP 115 / 77; Pulse 92; Resp 18 S; Pulse Ox 98% on R/A; ha1 01:00 BP 115 / 73; Pulse 89; Resp 18 S; Pulse Ox 99% on R/A; ha1 01:20 BP 113 / 76; Pulse 85; Resp 18 S; Pulse Ox 99% on R/A; ha1 02:20 BP 110 / 78; Pulse 88; Resp 16 S; Pulse Ox 99% on R/A; ha1 03:00 BP 114 / 75; Pulse 88; Resp 16 S; Pulse Ox 99% on R/A; 1 10/09 20:36 Body Mass Index 30.41 (90.72 kg, 172.72 cm) [facility] MDM: 10/09 20:24 Patient medically screened. rn 10/10 02:06 Differential Diagnosis: electrolyte abnormality, alcohol intoxication, overdose, volume rn depletion. Data reviewed: vital signs, nurses notes, lab test result(s), and as a result, I will discharge patient. Counseling: I had a detailed discussion with the patient and/or guardian regarding: the historical points, exam findings, and any diagnostic results supporting the discharge/admit diagnosis, lab results, the need for outpatient follow up, to return to the emergency department if symptoms worsen or persist or if there are any questions or concerns that arise at home. Response to treatment: the patient's symptoms have markedly improved after treatment, the patient's condition has returned to base line, the patient is now symptom free, and as a result, I will discharge patient. Special discussion: I discussed with the patient/guardian in detail that at this point there is no indication for admission to the hospital. It is understood, however, that if the symptoms persist or worsen the patient needs to return immediately for re-evaluation. ED course: Pt more alert and eating food, no longer combative. . 10/09 20:24 Order name: Acetaminophen; Complete Time: :35 rn 10/09 20:24 Order name: Basic Metabolic Panel; Complete Time: :35 rn 10/09 20:24 Order name: CBC with Diff; Complete Time: :35 rn 10/09 20:24 Order name: ETOH Level; Complete Time: :35 rn 10/09 20:24 Order name: Hepatic Function; Complete Time: :35 rn 10/09 20:24 Order name: PT-INR; Complete Time: :35 rn 10/09 20:24 Order name: Ptt, Activated; Complete Time: :35 rn 10/09 20:24 Order name: Salicylate; Complete Time: :35 rn 10/09 20:24 Order name: Urine Drug Screen; Complete Time: :35 rn 10/09 20:24 Order name: EKG; Complete Time: 20:25 rn 10/09 20:24 Order name: EKG - Nurse/Tech; Complete Time: :35 rn 10/09 20:24 Order name: IV Saline Lock; Complete Time: : rn 10/09 20:24 Order name: Labs collected and sent; Complete Time: 21: rn 10/09 20:24 Order name: Urine Dipstick-Ancillary (obtain specimen); Complete Time: 20:35 rn EC/10 20:34 Rate is 106 beats/min. Rhythm is regular. QRS [place] is Normal. [place] interval is normal. rn QRS interval is normal. QT interval is normal. No Q waves. T waves are Normal. No ST changes noted. Clinical impression: Sinus tachycardia. Interpreted by me. Reviewed by me. Administered Medications: 20:58 Drug: NS 0.9% 1000 ml Route: IV; Rate: 1 bolus; Site: right antecubital; ha1 10/10 00:30 Follow up: Response: No adverse reaction; IV Status: Completed infusion; IV Intake: ha1 1000ml Disposition Summary: 10/10/22 02:07 Discharge Ordered Location: Home rn Problem: new rn Symptoms: have improved rn Condition: Stable rn Diagnosis - Adverse effect of unspecified drugs, medicaments and biological substances rn Followup: rn - With: Private Physician - When: As needed - Reason: Recheck today's complaints, Re-evaluation by your physician Discharge Instructions: - Discharge Summary Sheet rn - Accidental Drug Poisoning, Adult rn - Illegal Drug Use Information, Adult rn Forms: - Medication Reconciliation Form rn - Thank You Letter rn - Antibiotic furnace brazer - Prescription Opioid Use rn Signatures: Dispatcher [employer] Jeremy Waite MD MD rn Ayala, Heidy, RN RN ha1 Corrections: (The following items were deleted from the chart) 10/09 20:35 20:25 Constitutional: This is a well developed, well nourished patient who is rn somnolent, no apnea Head/Face: Normocephalic, atraumatic. ENT: dry MM Cardiovascular: Regular rate and rhythm. No pulse deficits. Respiratory: No increased work of breathing, no retractions or nasal flaring. Abdomen/GI: Soft, non-tender Skin: Warm, dry MS/ Extremity: Pulses equal, no cyanosis. Neuro: Somnolent, groans to pain rn
[2022-10-10 03:34] VITALS: TEMP 97
[2022-10-10 03:41] VITALS: O2SAT 99
[2022-10-10 03:43] VITALS: BP 113/76
--- NOTE | 2022-10-13 17:24 | EKG ---
Test Date: 2022-10-09 Test Time: 20:33:05 [employer]der [employer]: RAJENDRA MEASUREMENT RESULTS: Intervals: Rate: 106 NC: 132 QRSD: 78 QT: 332 QTc: 441 [place]: P: 81 NC: 132 QRS: 54 T: 5 INTERPRETIVE STATEMENTS: Sinus tachycardia Nonspecific T wave abnormality Abnormal ECG Compared to ECG 09/26/2022 23:29:33 T-wave abnormality now present Sinus rhythm no longer present Myocardial infarct finding no longer present Electronically Signed On 10-13-22 17:15:55 PAN PUSHER by Dane Balderas
== END 2022-10-10 03:30 | disposition home or self-care (01) ==
LOC: ER 20:21
DX: R41.82 Altered mental status, unspecified (principal); T50.995A Adverse effect of other drugs, medicaments and biological substances, initial encounter; F20.9 Schizophrenia, unspecified
CPT/HCPCS: 96361; 93005; 85025; 80048; 36415; 85610; 80076; 85730; 80307; 51702; 96360; 99284; J7030; G0480 ×3

== ENCOUNTER → 2023-10-06 | Emergency (ER) | payer OTHER ==
[~2023-10-06] MED LIST: LORazepam 2 MG/ML VIAL ONE
[2023-10-06 12:28] LABS: Absolute Lymphocytes (CBC) 1.7 K/uL (0.7-4.9); Hematocrit 42.8 % (39.6-49.0); Lymphocytes % 28.3 % (15.3-44.8); MCV 84.9 fL (80-100); MPV 9.4 fL (7.6-11.3); Platelets 207 thou/uL (152-406); RBC Red Blood Cell Count 5.04 M/uL (4.33-5.43)
[2023-10-06 12:35] LABS: Protime INR 0.98
[2023-10-06 12:46] LABS: ALT/SGPT 25 U/L (16-61); AST/SGOT 17 U/L (15-37); Alkaline Phosphatase 96 U/L (45-117); BUN Blood Urea Nitrogen 8 mg/dL (7-18); Bicarbonate 29 mEq/L (21-32); Bilirubin Direct 0.2 mg/dL (0-0.2); Bilirubin Indirect, Calculated 0.6 mg/dL (0.2-0.8); Bilirubin Total 0.8 mg/dL (0.2-1.0); Glomerular Filtration Rate 88 ml/min (=/>90); Glucose Level 90 mg/dL (74-106); Potassium 3.7 mEq/L (3.5-5.1); Protein, Total 8.1 g/dL (6.4-8.2); Sodium Level 138 mEq/L (136-145)
[2023-10-06 12:50] LABS: Blood Morphology Comment NOT SEEN (NOT SEEN); Platelet Estimate ADEQ; Platelets, Giant FEW; White Blood Cell Scan OK (OK)
[2023-10-06 13:01] LABS: Lithium 0.2 mmol/L (0.6-1.2); Salicylates Level 2.2 mg/dL (2.8-20.0)
[2023-10-06 13:15] LABS: Barbiturates NEGATIVE (NEGATIVE); Benzodiazepines NEGATIVE (NEGATIVE); Cocaine NEGATIVE (NEGATIVE); METHAMPHETAM NEGATIVE (NEGATIVE); Methadone NEGATIVE (NEGATIVE); Opiates NEGATIVE (NEGATIVE); Phencyclidine NEGATIVE (NEGATIVE); THC Cannibis POSITIVE (NEGATIVE)
--- NOTE | 2023-10-06 13:22 | ER ---
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 HE WANTS TO GO TO A PSYCH FACILITY. Coronavirus screen: At this time, the client does not indicate any symptoms associated with coronavirus-19. Ebola Screen: No symptoms or risks identified at this time. Initial Sepsis Screen: Does the patient meet any 2 criteria? No. Patient's initial sepsis screen is negative. Does the patient have a suspected source of infection? No. Patient's initial sepsis screen is negative. Risk Assessment: Do you want to hurt yourself or someone else? Patient reports no desire to harm self or others. Onset of symptoms is unknown. 12:00 Method Of Arrival: EMS: [facility] bp 12:00 Acuity: JOSSELINE 2 bp Triage Assessment: 12:27 General: Appears in no apparent distress. comfortable, Behavior is calm, cooperative, bp appropriate for age. Pain: Denies pain. Neuro: No deficits noted. Historical: - Allergies: 12:27 No Known Allergies; bp - Home Meds: 12:27 Celexa Oral [Active]; bp - PMHx: 12:27 Bipolar disorder; Schizophrenia; Depressive disorder; bp - Immunization history:: Adult Immunizations unknown. - Social history:: Smoking status: unknown. Screenin:20 [facility] ED Fall Risk Assessment (Adult) History of falling in the last 3 months, db including since admission No falls in past 3 months (0 pts) Confusion or Disorientation No (0 pts) Intoxicated or Sedated No (0 pts) Impaired Gait No (0 pts) Mobility Assist Device Used No (0 pt) Altered Elimination No (0 pt) Score/Fall Risk Level 0 - 2 = Low Risk Oriented to surroundings, Maintained a safe environment. Abuse screen: Denies threats or abuse. Denies injuries from another. Nutritional screening: No deficits noted. Tuberculosis screening: No symptoms or risk factors identified. Assessment: 12:08 Reassessment: Patient appears in no apparent distress at this time. Patient and/or db family updated on plan of care and expected duration. Pain level reassessed. Patient is alert, oriented x 3, equal unlabored respirations, skin warm/dry/pink. General: Appears in no apparent distress. comfortable, Behavior is calm, cooperative. Pain: Denies pain. Neuro: Level of Consciousness is awake, alert, obeys commands, Oriented to person, place, time, situation. Respiratory: Airway is patent Respiratory effort is even, unlabored, Respiratory pattern is regular, symmetrical. 13:00 Reassessment: Patient appears in no apparent distress at this time. Patient and/or db family updated on plan of care and expected duration. Pain level reassessed. Patient is alert, oriented x 3, equal unlabored respirations, skin warm/dry/pink. 14:00 Reassessment: Patient appears in no apparent distress at this time. Patient and/or db family updated on plan of care and expected duration. Pain level reassessed. Patient is alert, oriented x 3, equal unlabored respirations, skin warm/dry/pink. 15:00 Reassessment: Patient appears in no apparent distress at this time. Patient and/or db family updated on plan of care and expected duration. Pain level reassessed. PATIENT REPORTS FEELING SAD. NOTED PATIENT CRYING. 16:45 Reassessment: Patient appears in no apparent distress at this time. Patient and/or db family updated on plan of care and expected duration. Pain level reassessed. Patient is alert, oriented x 3, equal unlabored respirations, skin warm/dry/pink. PATIENT PROVIDED MEAL TRAY. 18:15 Reassessment: REPORT CALLED TO [facility] IN [place]. db 19:30 Reassessment: Dr. Qureshi cleared patient to go home with safety plan. tm6 20:09 Reassessment: patient agreed to safety plan, copy given to patient. tm6 20:11 Reassessment: patient states he does not want to kill himself. tm6 20:15 Reassessment: patient spoke with family about continued support in presence of nursing tm6 staff. Psych: 12:06 Padroni Suicide Severity Screening: In the past month, have you wished you were db or wished you could go to sleep and not wake up? Patient responds "yes." "In the past month, have you actually had any thoughts of killing yourself?" Patient responds "yes." "In your lifetime, have you ever done anything, started to do anything, or prepared to do anything to end your life?" Patient responds "yes.". Subjective: Patient's mood is sad, Delusions are Hallucinations are denied Having thoughts of suicide. Denies suicidal plan. HAS THOUGHTS. Objective: Patient is cooperative, Speech is normal, Affect is appropriate. Interventions: Removed personal items and placed in bag. Patient placed in hospital gown. Searched person for dangerous items. Safety Checks: Personal items have been removed. Door is open. Visitors are present. Pt denies substance abuse. Commitment: Patient will be a voluntary commitment. 20:11 [place]i Suicide Severity Screening: In the past month, have you wished you were tm6 or wished you could go to sleep and not wake up? Patient responds "No." "In the past month, have you actually had any thoughts of killing yourself?" Patient responds "no." "In your lifetime, have you ever done anything, started to do anything, or prepared to do anything to end your life?" Patient responds "yes." Patient reports suicidal intent within 3 past months. Vital Signs: 12:00 BP 118 / 82; Pulse 72; Resp 16; Temp 98; Pulse Ox 99% ; bp 20:15 BP 146 / 104; Pulse 76; Resp 20; Temp 96.6; Pulse Ox 98% on R/A; Pain 0/10; tm6 20:15 Pain Scale: Adult tm6 ED Course: 12:02 Patient arrived in ED. ms3 12:03 Jose Florentino DO is Attending Physician. ms3 12:05 Monserrat Cottrell, SVETA is Primary Nurse. db 12:27 Triage completed. bp 12:27 Arm band placed on. bp 12:45 Inserted saline lock: 20 gauge in right antecubital area, using aseptic technique. db Blood collected. 14:04 faxed chart to [place] [employer]. bd 14:16 pt denied at [place] [facility] due to no male beds at this time. Per [place]. bd 14:29 faxed chart to [facility]. bd 16:22 faxed chart to [facility]. bd 18:03 refaxed chart to [facility] as requested by [facility]. bd 18:11 faxed chart to [facility]. bd 18:25 Attending Physician role handed off by Jose Florentino DO ms3 18:25 Cooper Qureshi MD is Attending Physician. ms3 19:51 Freeman Ragsdale MD is Referral Physician. drake 20:27 No provider procedures requiring assistance completed. IV discontinued, intact, tm6 bleeding controlled, No redness/swelling at site. Pressure dressing applied. 20:28 Allergy band placed. Provided Education on: safety plan. tm6 Administered Medications: 15:41 Drug: Ativan IVP 1 mg IVP once Route: IVP; Site: right antecubital; db 16:25 Drug: Ativan IVP 1 mg IVP once Route: IVP; Site: right antecubital; db Medication: 20:10 VIS not applicable for this client. tm6 Outcome: 13:21 ER care complete, transfer ordered by . ms3 19:51 Discharge ordered by MD. drake 20:28 Discharged to home ambulatory, tm6 20:28 Condition: stable 20:28 Discharge instructions given to patient, Instructed on discharge instructions, follow up and referral plans. safety practices, safety plan Demonstrated understanding of instructions, follow-up care, 20:29 Patient left the ED. tm6 Signatures: Benita Melgoza Corey, MD MD cha Peltier, Brian, RN RN Jose Florentino DO DO ms3 Monserrat Cottrell, RN RN db Galen Beth RN RN tm6 Corrections: (The following items were deleted from the chart) 20:29 20:09 Reassessment: safety plan completed, copy given to patient tm6 tm6
--- NOTE | 2023-10-06 13:23 | EDPHYS ---
Physician Documentation [facility] Name: Henrry Mohan Age: 32 yrs Sex: Male : 1990 Arrival Date: 10/06/2023 Time: 11:57 Bed 17 Private MD: ED Physician Cooper Qureshi HPI: 10/06 12:03 This 32 yrs old Black Male presents to ER via Unassigned with complaints of suicidal ms3 ideations. 12:03 32-year-old male with past medical history of schizophrenia, depression, bipolar ms3 presents to the emergency department via [facility] for suicidal ideation. EMS notes patient has been having issues with his roommates and states he is thinking of jumping off a bridge. EMS notes patient was admitted to a mental health institution last year. EMS notes patient's current medications are Celexa and lithium. Patient notes he is depressed" I want to and myself." Patient states his plan is to "jump off a bridge.". Historical: - Allergies: 12:27 No Known Allergies; bp - Home Meds: 12:27 Celexa Oral [Active]; bp - PMHx: 12:27 Bipolar disorder; Schizophrenia; Depressive disorder; bp - Immunization history:: Adult Immunizations unknown. - Social history:: Smoking status: unknown. ROS: 12:03 Constitutional: Negative for fever, and chills. Neck: Negative for injury, pain, and ms3 swelling, Cardiovascular: Negative for chest pain, and palpitations. Respiratory: Negative for shortness of breath, cough, wheezing, and pleuritic chest pain, Abdomen/GI: Negative for abdominal pain, nausea, vomiting, diarrhea, and constipation, MS/Extremity: Negative for injury and deformity, Skin: Negative for injury, rash, and discoloration, 12:03 Psych: Positive for depression, suicidal ideation, 12:03 All other systems are negative, Exam: 12:03 Constitutional: This is a well developed, well nourished patient who is awake, alert, ms3 and in no acute distress. Head/Face: Normocephalic, atraumatic. Neck: Trachea midline, no cervical lymphadenopathy. Supple, full range of motion without nuchal rigidity, or vertebral point tenderness. No Meningismus. Chest/axilla: Normal chest wall appearance and motion. Nontender with no deformity. Cardiovascular: Regular rate and rhythm with a normal S1 and S2. No gallops, murmurs, or rubs. Normal PMI, no JVD. No pulse deficits. Respiratory: Lungs have equal breath sounds bilaterally, clear to auscultation and percussion. No rales, rhonchi or wheezes noted. No increased work of breathing, no retractions or nasal flaring. Abdomen/GI: Soft, non-tender, with normal bowel sounds. No distension or tympany. No guarding or rebound. No evidence of tenderness throughout. Skin: Warm, dry with normal turgor. Normal color with no rashes, no lesions, and no evidence of cellulitis. MS/ Extremity: Pulses equal, no cyanosis. Neurovascular intact. Full, normal range of motion. 12:03 Psych: Behavior/mood is pleasant, cooperative, Affect is calm, Oriented to person, place, time, Patient having thoughts of suicide. Plan for suicide is Jump off a bridge. Patient stated he has thought of jumping off his balcony but does not believe that is high enough Judgement / Insight is normal. Memory is normal. Delusions/hallucinations are not present. 12:49 ECG was reviewed by the Attending Physician. ms3 Vital Signs: 12:00 BP 118 / 82; Pulse 72; Resp 16; Temp 98; Pulse Ox 99% ; bp 20:15 BP 146 / 104; Pulse 76; Resp 20; Temp 96.6; Pulse Ox 98% on R/A; Pain 0/10; tm6 20:15 Pain Scale: Adult tm6 MDM: 12:03 Patient medically screened. ms3 12:03 Differential diagnosis: acute psychotic break, depression, psychosis secondary to ms3 non-compliance. 13:50 Data reviewed: vital signs, nurses notes, lab test result(s), EKG, and as a result, I ms3 will transfer to psychiatric facility . Independent interpretation of the following test(s) in the Emergency Department EKG: See my EKG interpretation above. Historians other than the Patient: EMS: [facility]. Care significantly affected by the following chronic conditions: Bipolar, Schizophrenia, Depressive disorder. Counseling: I had a detailed discussion with the patient and/or guardian regarding the historical points, exam findings, and any diagnostic results supporting the discharge/admit diagnosis, lab results, the need to transfer to another facility, [facility] does not immediately have the required specialist. 18:23 Transition of care: After a detail discussion of the patient's case, care is ms3 transferred to Cooper Qureshi MD. 10/06 12:03 Order name: Acetaminophen; Complete Time: 13:20 ms3 10/06 12:03 Order name: BMP; Complete Time: 13:20 ms3 10/06 12:03 Order name: CBC with Diff; Complete Time: 13:20 ms3 10/06 12:03 Order name: Ethanol; Complete Time: 13:20 ms3 10/06 12:03 Order name: Hepatic Function; Complete Time: 13:20 ms3 10/06 12:03 Order name: Protime (+inr); Complete Time: 13:20 ms3 10/06 12:03 Order name: Ptt, Activated; Complete Time: 13:20 ms3 10/06 12:03 Order name: Salicylate; Complete Time: 13:20 ms3 10/06 12:03 Order name: Urine Drug Screen; Complete Time: 13:20 ms3 10/06 12:03 Order name: [place]; Complete Time: 13:20 ms3 10/06 12:51 Order name: CBC Smear Scan; Complete Time: 13:20 EDMS 10/06 12:03 Order name: EKG; Complete Time: 12:04 ms3 10/06 12:03 Order name: EKG - Nurse/Tech; Complete Time: 12:37 ms3 10/06 12:03 Order name: IV Saline Lock; Complete Time: 12:37 ms3 10/06 12:03 Order name: Labs collected and sent; Complete Time: 12:37 ms3 10/06 12:03 Order name: O2 Per Protocol; Complete Time: 12:37 ms3 10/06 12:03 Order name: O2 Sat Monitoring; Complete Time: 12:37 ms3 10/06 12:03 Order name: Suicide Precautions; Complete Time: 12:37 ms3 10/06 12:03 Order name: Suicide Screening ([place]); Complete Time: 12:37 ms3 EC:49 Rate is 67 beats/min. Rhythm is regular. QRS [place] is Normal. MD interval is normal. QRS ms3 interval is normal. Clinical impression: NSR w/ Non-specific ST/T Changes. Interpreted by me. Reviewed by me. Administered Medications: 15:41 Drug: Ativan IVP 1 mg IVP once Route: IVP; Site: right antecubital; db 16:25 Drug: Ativan IVP 1 mg IVP once Route: IVP; Site: right antecubital; db Disposition Summary: 10/06/23 19:51 Discharge Ordered Notes: Location: Home drake Problem: new(10/06/23 19:51) drake Symptoms: have improved(10/06/23 19:51) drake Condition: Stable(10/06/23 19:51) drake Diagnosis - Major depressive disorder, recurrent, mild drake - Suicidal ideations - resolved(10/06/23 19:51) drake Followup: drake - With: Private Physician - When: 2 - 3 days - Reason: Recheck today's complaints, Continuance of care, Re-evaluation by your physician Followup: drake - With: Freeman Ragsdale MD - When: 2 - 3 days - Reason: Recheck today's complaints, Re-evaluation by your physician Discharge Instructions: - Discharge Summary Sheet drake - Suicidal Feelings: How to Help Yourself drake - Helping Someone Who is Suicidal drake - Major Depressive Disorder, Adult, [id number] drake - Major Depressive Disorder, Adult drake - Supporting Someone With Depression drake Forms: - Medication Reconciliation Form drake - Thank You Letter drake - Antibiotic Education drake - Prescription Opioid Use drake - Patient Portal Instructions drake - Leadership Thank You Letter drake Signatures: Dispatcher [employer] Cooper Ornelas MD MD cha Peltier, Brian, RN RN Jose Dye DO DO ms3 Monserrat Cottrell, RN RN db Corrections: (The following items were deleted from the chart) 19:50 13:21 Dr ms3 drake 19:50 13:21 Psych Facility ms3 drake 19:50 13:21 Higher level of care ms3 drake 19:50 13:21 Stable ms3 drake 19:50 13:21 new ms3 drake 19:50 13:21 are unchanged ms3 drake 19:50 13:21 Suicidal ideations ms3 drake 19:50 13:21 Depression ms3 drake
--- NOTE | 2023-10-07 13:26 | EKG ---
Test Date: 2023-10-06 Test Time: 12:25:42 Resident Services Director: SHEYLA MEASUREMENT RESULTS: Intervals: Rate: 67 DE: 154 QRSD: 88 QT: 378 QTc: 399 [place]: P: 40 DE: 154 QRS: 7 T: -9 INTERPRETIVE STATEMENTS: Normal sinus rhythm Inferior infarct, age undetermined Abnormal ECG Compared to ECG 10/09/2022 20:33:05 Myocardial infarct finding now present Sinus tachycardia no longer present T-wave abnormality no longer present Electronically Signed On 10-07-23 13:22:29 MOBILE HOME SET UP PERSON by Dane Balderas
== END ==
LOC: ER 11:57
DX: F33.0 Major depressive disorder, recurrent, mild (principal)
CPT/HCPCS: 36415; 80048; 80076; 80143; 80178; 80179; 80307; 82077; 85025; 85610; 85730; 93005